=== PATIENT | female | born 2000 ===

== ENCOUNTER 2021-08-24 06:01 | Inpatient (IN) | payer MEDICAID ==
[~2021-08-24] VITALS: Ht 160 cm; Wt 83.6 kg
[2021-08-24] VITALS (55 sets, daily range): BP systolic 100–147; BP diastolic 56–97; PULSE 68–127; TEMP 98.2–98.8
--- NOTE | 2021-08-24 06:05 | NUR ---
736062.4 G1L0 arrives on unit for scheduled IOL. Ambulatory to LDR4. Oriented to room and plan of care. Reports normal movement. 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 Denies any VB. States ctx every 3-7min. Pt visibly uncomfortable with ctx. Changes into clean gown. 0618EFM explained and placed. VS obtained. 0625IV to left hand. Routine labs obtained. Consent forms explained and signed. Assessment completed. 0650SVE 5-6100/-1, BBOW. LR bolus infusing. Pt requesting epidural. 0653Dr. Jared updated on pt. See physician notification. 0655C. Gisella E[employer] READER notified pt requesting epidural. Pt updated on plan of care. Pt resting in bed with call light within reach. Declines posiiton change.
[2021-08-24] MEDS ORDERED: PRENATA1 CTB PO (07:12)
[2021-08-24 07:17] LABS: HEMOGLOBIN 10.2 g/dl (12.5-16.0); MEAN CELL VOLUME 81 fl (80.0-100.0); MEAN CORPUSCULAR HEMOGLOBIN 25 pg (27-31); MEAN CORPUSCULAR HGB CONC 31 g/dl (33.0-37.0); MEAN PLATELET VOLUME 11.9 fl (7.4-10.4); PLATELET COUNT 341 K/mm3 (130-400); RED BLOOD COUNT 4.01 M/mm3 (4.10-5.30); REDCELL DISTRIBUTION WIDTH-CV 18.1 % (11.5-14.5)
[2021-08-24 07:24] LABS: HEMATOCRIT 32.5 % (37.0-47.0)
--- NOTE | 2021-08-24 07:32 | NUR ---
0732C. Gisella APONTE to bedside for epidural placement. Pt to edge of bed. FHR tracing intermittently due to maternal position. RN remains at bedside. 0737Epidural placed and single shot by Eagle Obando CRNA. See anesthesia record. 0743Pt wedge left. EFM adjusted and tracing well. Plan of care and safety precautions reviewed with pt who verbalizes understanding. Resting with call light within reach.
[2021-08-24 07:49] LABS: BAND 14 % (0-10); EOSINOPHIL 2 % (0-4); LYMPHOCYTE 24 % (20.0-51.0); METAMYELOCYTE 1 % (0-0); NEUTROPHILS 57 % (42.0-75.2); PLATELET ESTIMATE NORMAL (NORMAL)
--- NOTE | 2021-08-24 11:51 | NUR ---
BEGIN BILATERAL SIDE LYING HIP RELEASE.
--- NOTE | 2021-08-24 13:52 | NUR ---
1352- SVE OF COMPLETE, PT BEGINS PRACTICE PUSHING WITH THIS NURSE.
--- NOTE | 2021-08-24 14:00 | NUR ---
MARK ZAMBRANO, 125MLS OUT.
--- NOTE | 2021-08-24 16:17 | NUR ---
DR. MARCOS IN ROOM TO EVALUATE AND PUSH WITH PT.
--- NOTE | 2021-08-24 17:25 | NUR ---
1720- SPONTANEOUS VAGINAL DELIVERY OF VIABLE BABY GIRL. BABY TO MOTHER'S ABDOMEN, CORD CLAMPED BY DR. MARCOS AND CUT BY FOB. 1725- SPONTANEOUS DELIVERY OF INTACT PLACENTA. PITOCIN STARTED AT 333ML/HR PER PROTOCOL. 1733- METHERGINE 0.2MG GIVEN TO LEFT THIGH PER DR. MARCOS. Eagle CHEW CRNA IN ROOM TO DOSE EPIDURAL PRIOR TO REPAIR OF 4TH DEGREE. 1740- DR. MARCOS REPAIRS 4TH DEGREE LACERATION 1755- RECOVERY STARTED.
[2021-08-25 02:30] VITALS: BP 122/73; PULSE 99; TEMP 97.8
[2021-08-25 07:00] VITALS: BP 104/53; PULSE 80; TEMP 98
[2021-08-25] MEDS ORDERED: IBU600 MG PO (08:24)
--- NOTE | 2021-08-25 09:22 | NUR ---
Assessment entered by student nurse reviewed and agreed by this nurse with addition of fundus slightly deviated to left. Pt reports needing to use bathroom soon.
--- NOTE | 2021-08-25 09:43 | NUR ---
Initial visit; Parents thanked Appian Developer for offering congratulations and God's blessings for the of their daughter. Appian Developer thanked family for choosing [facility].
[2021-08-25 13:38] VITALS: BP 118/66; PULSE 90; TEMP 98.4
[2021-08-25 17:13] VITALS: BP 113/64; PULSE 91; TEMP 98.4
[2021-08-25 21:00] VITALS: BP 140/68; PULSE 96; TEMP 98.4
[2021-08-26 06:45] VITALS: BP 132/88; PULSE 88; TEMP 98.8
[2021-08-26 12:44] VITALS: BP 123/67; PULSE 79; TEMP 98
== END 2021-08-26 15:05 | disposition home or self-care (01) | DRG 768 ==
LOC: LDR 06:01 → OB 06:01
PROVIDERS: ADMIT Obstetrics & Gynecology
PROC: 10E0XZZ Delivery of Products of Conception, External Approach (ICD-10-PCS; principal; 2021-08-24)
PROC: 0DQP0ZZ Repair Rectum, Open Approach (ICD-10-PCS; 2021-08-24)
PROC: 10907ZC Drainage of Amniotic Fluid, Therapeutic from Products of Conception, Via Natural or Artificial Opening (ICD-10-PCS; 2021-08-24)
DX: O48.0 Post-term pregnancy (principal); Z37.0 Single live birth; O70.3 Fourth degree perineal laceration during delivery; O72.1 Other immediate postpartum hemorrhage; O99.02 Anemia complicating childbirth; D64.9 Anemia, unspecified; O77.0 Labor and delivery complicated by meconium in amniotic fluid; Z3A.40 40 weeks gestation of pregnancy
CPT/HCPCS: J2210; J2590; J7120